=== PATIENT | male | born 1960 | race Caucasian/White ===

== ENCOUNTER 2017-02-05 08:24 | Inpatient (IN) | payer SELFPAY ==
[2017-02-05] VITALS (12 sets, daily range): BP systolic 122–133; BP diastolic 57–85; PULSE 92–118; RESP 14–20; TEMP 96–97.8; O2SAT 92–99
[~2017-02-05] VITALS: Ht 182.9 cm; Wt 96.4 kg
[2017-02-05] MEDS ORDERED: methylPREDNISolone SOD SUCC 125 MG/2 ML VIAL IVP ONE (08:30)
[2017-02-05] MEDS ORDERED: SODIUM CHLORIDE 0.9% FLUSH 10 ML FLUSH IVF PRN (08:30)
[2017-02-05] MEDS: RESP: ALBUTEROL 2.5 MG/IPRATROPIUM 0.5 MG NEB (SCH) INH ×5 (08:38→19:19)
--- NOTE | 2017-02-05 08:51 | RADRPT ---
EXAM DATE/TIME: 02/05/2017 08:49 [facility] COMPARISON: CHEST PA & LAT, March 03, 2016, 3:51. INDICATIONS : Short of breath MEDICAL HISTORY : Chronic obstructive pulmonary disease. TIA's SURGICAL HISTORY : None. ENCOUNTER: Initial ACUITY: 1 day PAIN SCORE: 0/10 LOCATION: Bilateral chest FINDINGS: A single view of the chest demonstrates the lungs to be symmetrically aerated without evidence of mas s, infiltrate or effusion. The cardiomediastinal contours are unremarkable. Osseous structures are intact. CONCLUSION: No acute disease. Jeremías Kaur MD on February 05, 2017 at 8:50 Board Certified Radiologist. This report was verified electronically.
[2017-02-05] MEDS ORDERED: ACET300T2 PO (08:53)
[2017-02-05] MEDS ORDERED: PRED20 PO (08:53)
[2017-02-05] MEDS ORDERED: VENTAER INH (08:53)
[2017-02-05] MEDS ORDERED: LEVO500T8 PO (08:53)
--- NOTE | 2017-02-05 08:59 | PD ---
HPI . Respiratory distress Chief Complaint: Respiratory Distress Time Seen by Provider: 08:30 Travel History International Travel<30 days: No Contact w/Intl Traveler<30days: No Traveled to known affect area: No History of Present Illness HPI This patient presents ambulatory with chief complaint of respiratory distress. The patient reports that he has had before his symptoms for the last several weeks. The symptoms have become acutely worse over the last 3-4 days. He states that he has a very persistent cough which is causing him some chest discomfort. He has developed some hemoptysis. He has developed vomiting. He reports that he was seen at an outside facility yesterday and was given prescriptions for Levaquin, prednisone and Tylenol No. 3. He states that he has been taking these medications along with his usual albuterol MDI and nebulizer without any relief of his symptoms. Symptoms are getting worse rather than better. His symptoms are now severe. He has had no known fever. PFSH Past Medical History Hx Anticoagulant Therapy: Yes (per pt ) Arthritis: Yes Asthma: Yes COPD: Yes Cerebrovascular Accident: Yes (x 3 or 4 per pt) Respiratory: Yes (COPD / ASTHMA) Seizures: Yes Influenza Vaccination: No Past Surgical History Other Surgery: Yes (metakl plate in nose and roof of mouth ) Social History Alcohol Use: Yes (weekly) Tobacco Use: No Substance Use: No Allergies-Medications (Allergen,Severity, Reaction): Coded Allergies: Penicillins (Verified Allergy, Intermediate, HIVES / RASH, 02/05/17) Reported Meds & Prescriptions Reported Meds & Active Scripts Active Reported Levofloxacin 500 Mg Tablet 500 Mg PO DAILY 7 Days Acetaminophen-Codeine 300-30 mg Tab 1 Tab PO Q4H PRN Prednisone 20 Mg Tab 20 Mg PO DIRECTED 40 MG twice a day x 3 days, then 20 MG daily x 3 days, then 10 MG daily x 3 days Ventolin Hfa 18 GM Inh (Albuterol Sulfate) 90 Mcg/Act Aer 2 Puff INH Q4-6H PRN Review of Systems Except as stated in HPI: all other systems reviewed are Neg General / Constitutional: No: Fever, Chills Cardiovascular: Positive: Chest Pain or Discomfort Respiratory: Positive: Cough, Shortness of Breath, Wheezing Gastrointestinal: Positive: Vomiting Neurologic: Positive: Weakness Physical Exam Narrative GENERAL: This patient is coughing continuously and seems to be in respiratory distress. He also seems to be in a fair amount of pain. SKIN: warm/dry. HEAD: Normocephalic. EYES: Pupils equal and round. No scleral icterus. No injection or drainage. ENT: No nasal bleeding or discharge. Mucous membranes pink and moist. NECK: Trachea midline. Full range of motion without pain.. CARDIOVASCULAR: Regular rate and rhythm. Sinus tachycardia. RESPIRATORY: He is tachypneic. He has diffuse inspiratory and expiratory wheezing. He coughs and then clutches his chest. GASTROINTESTINAL: Abdomen soft. Nontender. Bowel sounds present. Nondistended. MUSCULOSKELETAL: No obvious deformities. NEUROLOGICAL: Awake and alert. No obvious cranial nerve deficits. Motor grossly within normal limits. Normal speech. PSYCHIATRIC: Appropriate mood and affect; insight and judgment normal. Data Data Last Documented VS Vital Signs Date Time Temp Pulse Resp B/P (MAP) Pulse Ox O2 Delivery O2 Flow Rate FiO2 02/05/17 10:01 107 16 125/66 (85) 99 Nasal Cannula 2.00 02/05/17 08:45 97.8 Orders Orders Complete Blood Count With Diff (02/05/17 08:30) Comprehensive Metabolic Panel (02/05/17 08:30) B-Type Natriuretic Peptide (02/05/17 08:30) D-Dimer (02/05/17 08:30) Act Partial Throm Time (Ptt) (02/05/17 08:30) Prothrombin Time / Inr (Pt) (02/05/17 08:30) Ckmb (Isoenzyme) Profile (02/05/17 08:30) Troponin I (02/05/17 08:30) Arterial Blood Gas (Abg) (02/05/17 08:30) Iv Access Insert/Monitor (02/05/17 08:30) Ecg Monitoring (02/05/17 08:30) Oximetry (02/05/17 08:30) Oxygen Administration (02/05/17 08:30) Chest, Single Ap (02/05/17 08:30) Sodium Chloride 0.9% Flush (Ns Flush) (02/05/17 08:30) Methylprednisolone So Succ Inj (Solumedr (02/05/17 08:30) Albuterol-Ipratropium Neb (Duoneb Neb) (02/05/17 08:30) Sodium Chlor 0.9% 1000 Ml Inj (Ns 1000 M (02/05/17 09:15) Electrocardiogram (02/05/17 08:26) CKMB (02/05/17 08:30) CKMB% (02/05/17 08:30) Admit Order (Ed Use Only) (02/05/17 10:54) Labs Laboratory Tests Test 02/05/17 08:30 White Blood Count 18.7 TH/MM3 Red Blood Count 5.30 MIL/MM3 Hemoglobin 13.4 GM/DL Hematocrit 43.1 % Mean Corpuscular Volume 81.3 FL Mean Corpuscular Hemoglobin 25.3 PG Mean Corpuscular Hemoglobin Concent 31.1 % Red Cell Distribution Width 15.4 % Platelet Count 260 TH/MM3 Mean Platelet Volume 8.4 FL Neutrophils (%) (Auto) 87.3 % Lymphocytes (%) (Auto) 7.0 % Monocytes (%) (Auto) 5.5 % Eosinophils (%) (Auto) 0.1 % Basophils (%) (Auto) 0.1 % Neutrophils # (Auto) 16.4 TH/MM3 Lymphocytes # (Auto) 1.3 TH/MM3 Monocytes # (Auto) 1.0 TH/MM3 Eosinophils # (Auto) 0.0 TH/MM3 Basophils # (Auto) 0.0 TH/MM3 CBC Comment DIFF FINAL Differential Comment Prothrombin Time 10.2 SEC Prothromb Time International Ratio 0.9 RATIO Activated Partial Thromboplast Time 23.8 SEC D-Dimer Quantitative (PE/DVT) 0.34 MG/L FEU Blood Urea Nitrogen 18 MG/DL Creatinine 1.42 MG/DL Random Glucose 119 MG/DL Total Protein 7.8 GM/DL Albumin 3.5 GM/DL Calcium Level 9.3 MG/DL Alkaline Phosphatase 78 U/L Aspartate Amino Transf (AST/SGOT) 35 U/L Alanine Aminotransferase (ALT/SGPT) 38 U/L Total Bilirubin 0.2 MG/DL Sodium Level 138 MEQ/L Potassium Level 3.9 MEQ/L Chloride Level 104 MEQ/L Carbon Dioxide Level 24.0 MEQ/L Anion Gap 10 MEQ/L Estimat Glomerular Filtration Rate 52 ML/MIN Total Creatine Kinase 895 U/L Creatine Kinase MB 10.5 NG/ML Creatine Kinase MB % 1.2 % Troponin I LESS THAN 0.02 NG/ML B-Type Natriuretic Peptide 23 PG/ML MDM Medical Decision Making Medical Screen Exam Complete: Yes Emergency Medical Condition: Yes Interpretation(s) His EKG has sinus tachycardia. He was a lot of artifact. I don't see any acute ST segment elevation or depression. Differential Diagnosis Differential diagnosis of dyspnea includes but is not limited to congestive heart failure, pneumonia, wheezing, pneumothorax, pulmonary embolism Narrative Course This patient presents with worsening dyspnea associated with cough and now hemoptysis. He was emergently treated with stacked DuoNeb and Solu-Medrol, 125 mg IV. He is doing better. Last Impressions Chest X-Ray 02/05/17 0830 Signed Impressions: Service Date/Time: Sunday, February 05, 2017 08:49 - CONCLUSION: No acute disease. Jeremías Kaur MD The chest x-ray was independently viewed by me. CBC & BMP Diagram 02/05/17 08:30 Total Protein 7.8, Albumin 3.5, Calcium Level 9.3, Alkaline Phosphatase 78, Aspartate Amino Transf (AST/SGOT) 35, Alanine Aminotransferase (ALT/SGPT) 38, Total Bilirubin 0.2 This patient was started on steroids yesterday. Therefore, the WBC may be due to steroids. This patient is doing much better following treatment. He is agreeable to stay for observation as he was in respiratory distress on arrival. Critical Care Narrative Aggregate critical care time was minutes. Time to perform other separately billable procedures was not included in the critical care time. My time did not include minutes spent treating any other patients simultaneously or on activities that did not directly contribute to the patient's treatment. The services I provided to this patient were to treat and/or prevent clinically significant deterioration due to respiratory distress I provided critical care services requiring my management, as noted below: Chart data review, documentation time, medication orders and management, vital sign assessments/reviewing monitor data, ordering and reviewing lab tests, ordering and interpreting/reviewing x-rays and diagnostic studies, care of the patient and discussion of the patient with the admitting physicians Physician Communication Physician Communication Dr. Pearson states that this patient needs to be a full admit rather than OBS Diagnosis Primary Impression: Respiratory distress Additional Impression: Acute exacerbation of chronic obstructive pulmonary disease (COPD) Admitting Information Admitting Physician Requests: Admit Condition: Stable Mariza Mandel MD Feb 05, 2017 08:59
[2017-02-05] MEDS ORDERED: SODIUM CHLOR 0.9% 1000 ML INJ 1,000 ML IV ONE (09:15)
[2017-02-05 09:17] LABS: AUTOMATED NEUTROPHIL # 16.4 TH/MM3 (1.8-7.7); BASOPHIL % 0.1 % (0.0-2.0); EOSINOPHIL % 0.1 % (0.0-4.0); HEMATOCRIT 43.1 % (39.0-51.0); HEMO FLAGS DIFF FINAL; LYMPHOCYTE # 1.3 TH/MM3 (1.0-4.8); MEAN CELL VOLUME 81.3 FL (80.0-100.0); MEAN CORPUSCULAR HEMOGLOBIN 25.3 PG (27.0-34.0); MEAN CORPUSCULAR HGB CONC 31.1 % (32.0-36.0); MONO % 5.5 % (0.0-8.0); NEUT % 87.3 % (16.0-70.0); PLATELET COUNT 260 TH/MM3 (150-450); RED CELL DISTRIBUTION WIDTH 15.4 % (11.6-17.2); WHITE BLOOD COUNT 18.7 TH/MM3 (4.0-11.0)
[2017-02-05 09:27] LABS: APTT (PATIENT) 23.8 SEC (24.3-30.1); INTERNATIONAL NORMALIZED RATIO 0.9 RATIO; PROTHROMBIN TIME - PATIENT 10.2 SEC (9.8-11.6)
[2017-02-05 09:55] LABS: ALT (GPT) 38 U/L (12-78); ANION GAP 10 MEQ/L (5-15); AST (GOT) 35 U/L (15-37); BLOOD UREA NITROGEN 18 MG/DL (7-18); CHLORIDE 104 MEQ/L (98-107); GLOMERULAR FILTRATION RATE 52 ML/MIN (>89); POTASSIUM 3.9 MEQ/L (3.5-5.1); SODIUM (NA) 138 MEQ/L (136-145)
[2017-02-05 09:57] LABS: ALKALINE PHOSPHATASE 78 U/L (45-117); CREATINE KINASE 895 U/L (39-308); TOTAL BILIRUBIN ADULT 0.2 MG/DL (0.2-1.0)
[2017-02-05 10:10] LABS: CKMB 10.5 NG/ML (0.5-3.6)
[2017-02-05 11:18] LABS: BLOOD GAS BASE EXCESS -0.9 mmol/L (-2-2); BLOOD GAS CARBOXYHEMOGLOBIN 0.9 % (0-4); BLOOD GAS HCO3 23 mmol/L (22-26); BLOOD GAS METHEMOGLOBIN 0.9 % (0-2); BLOOD GAS O2 HGB SATURATION 95 % (90-100); BLOOD GAS OXYGEN CONTENT 16.2 Vol % (12.0-20.0); BLOOD GAS PCO2 40 mmHg (38-42); BLOOD GAS PO2 87 mmHG (61-120); BLOOD GAS TOTAL HGB 12.1 G/DL (12.0-16.0); CRITICAL VALUE NO; DRAW SITE RT RADIAL; LITER FLOW 2 L/M; NUMBER OF ARTERIAL PUNCTURES 1; OXYGEN DEVICE NASAL CANNULA; STAT YES; TEMP CORR TO 98.6; ULNAR PULSE PRESENT
[2017-02-05] MEDS ORDERED: SODIUM CHLORIDE 0.9% FLUSH 10 ML FLUSH IV FLUSH PRN (11:45)
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
--- NOTE | 2017-02-05 12:16 | RADRPT ---
EXAM DATE/TIME: 02/05/2017 12:01 [facility] COMPARISON: CHEST SINGLE AP, February 05, 2017, 8:49. INDICATIONS : Cough with chest pain, rib pain right side. RADIATION DOSE: 4.97 CTDIvol (mGy) MEDICAL HISTORY : Seizures. CVA x 3 SURGICAL HISTORY : None. ENCOUNTER: Initial ACUITY: 1 week PAIN SCALE: 10/10 LOCATION: Right chest TECHNIQUE: Volumetric scanning of the chest was performed. Using automated exposure control and adjustment of t he mA and/or kV according to patient size, radiation dose was kept as low as reasonably achievable to obtain optimal diagnostic quality images. DICOM format image data is available electronically for r eview and comparison. Follow-up recommendations for detected pulmonary nodules are based at a minimum on nodule size and pa tient risk factors according to Fleischner Society Guidelines. FINDINGS: Calcified granuloma right middle lobe measuring 64 mm. Lungs are otherwise clear. Calcified right hil ar 1.3 cm short axis lymph node. No pleural or pericardial effusions. A calcified granuloma in the sp adithya is present. The osseous structures are intact. CONCLUSION: No acute disease. Jeremías Kaur MD on February 05, 2017 at 12:13 Board Certified Radiologist. This report was verified electronically.
--- NOTE | 2017-02-05 12:36 | EKG ---
Date Performed: 02/05/2017 Time Performed: 08:26:31 PTAGE: 56 years EKG: SINUS TACHYCARDIA NONSPECIFIC T-WAVE ABNORMALITY ABNORMAL RHYTHM ECG INTERPRETATION BASED O N A DEFAULT AGE OF 41 YEARS NO PREVIOUS TRACING DOCTOR: Jeffrey Cortes Interpretating Date/Time 02/05/2017 12:35:10
[2017-02-05] MEDS: SODIUM CHLOR 0.9% 1000 ML INJ 1,000 ML IV SCH ×2 (12:44→23:23)
[2017-02-05] MEDS: LEVOFLOXACIN 750 MG PREMIX INJ 150 ML IV SCH (12:45)
[2017-02-05] MEDS: methylPREDNISolone SOD SUCC 125 MG/2 ML VIAL IVP SCH ×2 (14:47→21:00)
[2017-02-05] MEDS: SODIUM CHLORIDE 0.9% FLUSH 10 ML FLUSH IV FLUSH SCH (21:00)
[2017-02-05] MEDS: BUDESONIDE-FORMOTEROL 160/4.5 MCG INHALER INH SCH (23:22)
[2017-02-06] VITALS (9 sets, daily range): BP systolic 125–139; BP diastolic 67–78; PULSE 82–96; RESP 17–19; TEMP 95.3–97; O2SAT 94–98
[2017-02-06] MEDS: RESP: ALBUTEROL 2.5 MG/IPRATROPIUM 0.5 MG NEB (SCH) INH ×5 (01:13→21:42)
[2017-02-06] MEDS: RESP: ALBUTEROL 2.5 MG/3 ML NEB (PRN) INH (03:47)
[2017-02-06] MEDS: guaiFENesin/CODEINE SYRUP 200 MG/20 MG/10 ML CUP PO PRN (04:13)
[2017-02-06] MEDS: methylPREDNISolone SOD SUCC 125 MG/2 ML VIAL IVP SCH ×4 (04:14→21:45)
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
[2017-02-06] MEDS: SODIUM CHLORIDE 0.9% FLUSH 10 ML FLUSH IV FLUSH SCH ×2 (09:00→21:44)
[2017-02-06] MEDS: BUDESONIDE-FORMOTEROL 160/4.5 MCG INHALER INH SCH ×2 (09:12→21:44)
[2017-02-06] MEDS: SODIUM CHLOR 0.9% 1000 ML INJ 1,000 ML IV SCH ×2 (11:50→23:45)
[2017-02-06] MEDS: LEVOFLOXACIN 750 MG PREMIX INJ 150 ML IV SCH (12:52)
--- NOTE | 2017-02-06 13:54 | RADRPT ---
EXAM DATE/TIME: 02/06/2017 13:19 [place] COMPARISON: CHEST SINGLE AP, February 05, 2017, 8:49. INDICATIONS : Chest pain with dyspnea. DOSE: 8.5 mCi Tc99m MAA IV 1.5 mCi Tc99m DTPA aerosol MEDICAL HISTORY : Chronic obstructive pulmonary disease. SURGICAL HISTORY : None. ENCOUNTER: Initial ACUITY: 3 days PAIN SCALE: 2/10 LOCATION: Left chest TECHNIQUE: Following five minutes of tidal breathing of DTPA aerosol, planar images of the lungs were performed in eight projections. The patient was then injected with MAA, and eight-view perfusion scan was perf ormed. FINDINGS: There are patchy ventilation defects with normal perfusion. There is no perfusion mismatch. CONCLUSION: Low probability for pulmonary embolism. This is predominantly in ventilatory defect. Adis Askew MD FACR on February 06, 2017 at 13:51 Board Certified Radiologist. This report was verified electronically.
--- NOTE | 2017-02-06 15:33 | HHI.PR ---
Subjective Remarks Patient still short of breath although better than yesterday still coughing but much improved denies fevers/chills as per RN patient refused labs in am o2 sats improving Objective Vitals Vital Signs Date Time Temp Pulse Resp B/P (MAP) Pulse Ox O2 Delivery O2 Flow Rate FiO2 02/06/17 14:32 95.3 89 17 139/78 (98) 96 02/06/17 12:00 95.5 86 18 139/76 (97) 98 02/06/17 09:47 96 Nasal Cannula 3.00 02/06/17 08:00 96.5 82 19 125/74 (91) 94 02/06/17 03:50 96.4 95 18 130/75 (93) 94 02/06/17 01:15 94 Nasal Cannula 3.00 02/05/17 23:25 96.4 92 20 128/76 (93) 97 02/05/17 22:00 94 Nasal Cannula 2.00 02/05/17 20:25 96.8 101 19 128/85 (99) 96 02/05/17 16:40 96.0 97 18 132/71 (91) 96 02/05/17 16:11 98 Nasal Cannula 3.00 02/05/17 15:53 I/O 02/05/17 02/05/17 02/05/17 02/06/17 02/06/17 02/06/17 07:00 15:00 23:00 07:00 15:00 23:00 Intake Total 1000 ml 360 ml 1241 ml Balance 1000 ml 360 ml 1241 ml Intake Oral 360 ml 480 ml IV Total 1000 ml 761 ml # Voids 1 2 # Bowel Movements 0 0 Result Diagram: 02/05/1782902/05/1730 Imaging Last Impressions Lung Scan-VQ Nuclear Medicine 02/06/17 0000 Signed Impressions: Service Date/Time: Monday, February 06, 2017 13:19 - CONCLUSION: Low probability for pulmonary embolism. This is predominantly in ventilatory defect. Adis Askew MD FACR Chest X-Ray 02/05/17829 Signed Impressions: Service Date/Time: Sunday, February 05, 2017 08:49 - CONCLUSION: No acute disease. Jeremías Kaur MD Chest CT 02/05/17 0000 Signed Impressions: Service Date/Time: Sunday, February 05, 2017 12:01 - CONCLUSION: No acute disease. Jeremías Kaur MD Objective Remarks GENERAL: This is a well-nourished, well-developed patient, lying in bed on 2LNC , coughing with noticeable chest discomfort. SKIN: No rashes, ecchymoses or lesions. Cool and dry. Multiple tatoos noted. HEAD: Atraumatic. Normocephalic. EYES: Pupils equal round and reactive. Extraocular motions intact. No scleral icterus. No injection or drainage. ENT: Nose without bleeding. Airway patent. NECK: Trachea midline. No JVD. Supple. CARDIOVASCULAR: Sinus tachycardia. No murmurs, gallops, or rubs. Diffuse chest wall tenderness to palpation. RESPIRATORY: diffuse bilateral expiratory wheezing with improved air movement when compared to previous day. GASTROINTESTINAL: Abdomen soft, non-tender, nondistended. No guarding. MUSCULOSKELETAL: Extremities without clubbing, cyanosis, or edema. No joint tenderness, effusion, or edema noted. NEUROLOGICAL: Awake and alert. Cranial nerves II through XII intact. Motor and sensory grossly within normal limits. Five out of 5 muscle strength in all muscle groups. Normal speech. Medications and IVs Current Medications Medications (Trade) Dose Ordered Sig/Hayden Route Start Time Stop Time Status Last Admin (NS Flush) 2 ml BID IV FLUSH 02/05/17 21:00 (NS Flush) 2 ml UNSCH PRN IV FLUSH 02/05/17 11:45 (Duoneb Neb) 1 ampule Q4HR NEB INH 02/05/17 12:00 02/06/17 12:33 (Albuterol Neb) 2.5 mg Q2HR NEB PRN INH 02/05/17 11:45 (Symbicort 160-4.5 Inh) 2 puff Q12HR INH 02/05/17 21:00 02/06/17 09:12 (SoluMEDROL INJ) 60 mg Q6H IVP 02/05/17 15:00 02/06/17 14:32 Levofloxacin/ Dextrose 150 ml @ 100 mls/hr Q24H IV 02/05/17 13:00 02/06/17 12:52 Sodium Chloride 1,000 ml @ 84 mls/hr [id number] IV 02/05/17 12:00 02/05/17 23:23 (Robitussin Ac 200-20 Mg/10 ml Liq) 10 ml Q4H PRN PO 02/05/17 13:00 02/06/17 04:13 A/P Problem List: (1) Sepsis ICD Code: A41.9 - Sepsis, unspecified organism Plan: Present on admission patient with leukocytosis of 18.7, bandemia 87.3% and tachycardia. Continue IV fluids, IV antibiotics Blood cultures obtained and negative 1 Negative flu a and B antigen (2) Acute exacerbation of chronic obstructive pulmonary disease (COPD) ICD Code: J44.1 - Chronic obstructive pulmonary disease with (acute) exacerbation Status: Acute Plan: Patient admitted to the medical floor. Started on IV Levaquin, IV Solu-Medrol, Symbicort and Robitussin Ac for cough Patient also placed on DuoNeb's Continue Treatment at same dose of IV Solu-Medrol. Pulmonary consulted. (3) Respiratory distress ICD Code: R06.00 - Dyspnea, unspecified Status: Acute Plan: Due to COPD exacerbation. VQ scan ordered per pulmonology and will probably defer pulmonary embolism. There is a predominantly ventilatory defect. (4) PIPPA (acute kidney injury) ICD Code: N17.9 - Acute kidney failure, unspecified Plan: Likely prerenal azotemia. Continue IV fluids and monitor creatinine, strict I's and O's, avoid nephrotoxins. Patient refused a.m. labs. (5) Rhabdomyolysis ICD Code: M62.82 - Rhabdomyolysis Plan: Likely secondary to coughing, dehydration and possibly leading to acute kidney injury. Total CK at 895. Continue to monitor CK. A.m. labs not obtained due to patient refusal. Assessment and Plan DVT prophylaxis: SCDs, Caprini score of 1, early ambulation recommended. GI prophylaxis: We'll add PPI since patient is is on IV steroids. Discharge Planning Continue to monitor in the medical floor. Patient still with acute COPD exacerbation Problem Qualifiers (1) Sepsis: Qualified Codes: A41.9 - Sepsis, unspecified organism Cliff Tucker MD Feb 06, 2017 15:33
[2017-02-07] MEDS: RESP: ALBUTEROL 2.5 MG/IPRATROPIUM 0.5 MG NEB (SCH) INH ×6 (00:33→20:44)
[2017-02-07] MEDS: methylPREDNISolone SOD SUCC 125 MG/2 ML VIAL IVP SCH ×3 (03:00→16:53)
[2017-02-07 08:00] VITALS: BP 136/73; PULSE 85; RESP 18; TEMP 95.8; O2SAT 93
[2017-02-07 08:25] VITALS: O2SAT 94
[2017-02-07] MEDS: SODIUM CHLORIDE 0.9% FLUSH 10 ML FLUSH IV FLUSH SCH ×2 (09:00→20:57)
[2017-02-07] MEDS: BUDESONIDE-FORMOTEROL 160/4.5 MCG INHALER INH SCH ×2 (09:00→20:59)
[2017-02-07 09:42] LABS: AUTOMATED NEUTROPHIL # 14.2 TH/MM3 (1.8-7.7); BASOPHIL % 0.1 % (0.0-2.0); HEMATOCRIT 41.3 % (39.0-51.0); LYMPH % 6.5 % (9.0-44.0); MEAN CELL VOLUME 80.2 FL (80.0-100.0); MEAN CORPUSCULAR HEMOGLOBIN 26.5 PG (27.0-34.0); MONO % 5.1 % (0.0-8.0); NEUT % 88.3 % (16.0-70.0); PLATELET COUNT 260 TH/MM3 (150-450); RED BLOOD COUNT 5.14 MIL/MM3 (4.50-5.90); RED CELL DISTRIBUTION WIDTH 15.2 % (11.6-17.2); WHITE BLOOD COUNT 16.1 TH/MM3 (4.0-11.0)
[2017-02-07 09:45] LABS: HEMO FLAGS AUTO DIFF
[2017-02-07 10:08] LABS: ALKALINE PHOSPHATASE 63 U/L (45-117); ALT (GPT) 49 U/L (12-78); ANION GAP 7 MEQ/L (5-15); AST (GOT) 37 U/L (15-37); BLOOD UREA NITROGEN 16 MG/DL (7-18); CHLORIDE 106 MEQ/L (98-107); GLOMERULAR FILTRATION RATE 80 ML/MIN (>89); MAGNESIUM 2.4 MG/DL (1.5-2.5); POTASSIUM 3.9 MEQ/L (3.5-5.1); SODIUM (NA) 139 MEQ/L (136-145); TOTAL BILIRUBIN ADULT 0.2 MG/DL (0.2-1.0)
[2017-02-07 10:52] LABS: PLATELET ESTIMATE SMEAR NORMAL (NORMAL); PLATELET MORPHOLOGY NORMAL (NORMAL); SCAN/DIFF AUTO DIFF CONFIRMED
[2017-02-07] MEDS: SODIUM CHLOR 0.9% 1000 ML INJ 1,000 ML IV SCH (11:40)
[2017-02-07 12:00] VITALS: BP 135/78; PULSE 85; RESP 18; TEMP 97.1; O2SAT 96
[2017-02-07] MEDS: LEVOFLOXACIN 750 MG PREMIX INJ 150 ML IV SCH (14:29)
[2017-02-07 16:00] VITALS: BP 135/80; PULSE 94; RESP 18; TEMP 96.9; O2SAT 95
--- NOTE | 2017-02-07 16:26 | HHI.PR ---
Subjective Remarks Patient states that he had bad cough last night improved today but still present denies fevers or chills good 02 sat on 2 liters nasal canula Objective Vitals Vital Signs Date Time Temp Pulse Resp B/P (MAP) Pulse Ox O2 Delivery O2 Flow Rate FiO2 02/07/17 12:00 97.1 85 18 135/78 (97) 96 02/07/17 08:25 94 Nasal Cannula 2.00 02/07/17 08:00 95.8 85 18 136/73 (94) 93 02/06/17 23:45 97.0 90 19 136/71 (92) 94 02/06/17 21:43 96 Nasal Cannula 2.00 02/06/17 20:10 97.0 96 19 138/67 (90) 95 I/O 02/06/17 02/06/17 02/06/17 02/07/17 02/07/17 02/07/17 06:59 14:59 22:59 06:59 14:59 22:59 Intake Total 1241 ml 1680 ml 600 ml Balance 1241 ml 1680 ml 600 ml Intake Oral 480 ml 1680 ml 600 ml IV Total 761 ml # Voids 2 5 2 # Bowel Movements 0 2 0 Result Diagram: 02/07/17 0818 02/07/17 0818 Imaging Last Impressions Lung Scan-VQ Nuclear Medicine 02/06/17 0000 Signed Impressions: Service Date/Time: Monday, February 06, 2017 13:19 - CONCLUSION: Low probability for pulmonary embolism. This is predominantly in ventilatory defect. Adis Askew MD FACR Chest X-Ray 02/05/17 0830 Signed Impressions: Service Date/Time: Sunday, February 05, 2017 08:49 - CONCLUSION: No acute disease. Jeremías Kaur MD Chest CT 02/05/17 0000 Signed Impressions: Service Date/Time: Sunday, February 05, 2017 12:01 - CONCLUSION: No acute disease. Jeremías Kaur MD Objective Remarks GENERAL: This is a well-nourished, well-developed patient, lying in bed on 2LNC , coughing with noticeable chest discomfort. SKIN: No rashes, ecchymoses or lesions. Cool and dry. Multiple tatoos noted. HEAD: Atraumatic. Normocephalic. EYES: Pupils equal round and reactive. Extraocular motions intact. No scleral icterus. No injection or drainage. ENT: Nose without bleeding. Airway patent. NECK: Trachea midline. No JVD. Supple. CARDIOVASCULAR: Sinus tachycardia. No murmurs, gallops, or rubs. Diffuse chest wall tenderness to palpation. RESPIRATORY: diffuse bilateral expiratory wheezing with improved air movement when compared to previous day. GASTROINTESTINAL: Abdomen soft, non-tender, nondistended. No guarding. MUSCULOSKELETAL: Extremities without clubbing, cyanosis, or edema. No joint tenderness, effusion, or edema noted. NEUROLOGICAL: Awake and alert. Cranial nerves II through XII intact. Motor and sensory grossly within normal limits. Five out of 5 muscle strength in all muscle groups. Normal speech. Medications and IVs Current Medications Medications (Trade) Dose Ordered Sig/Hayden Route Start Time Stop Time Status Last Admin (NS Flush) 2 ml BID IV FLUSH 02/05/17 21:00 02/07/17 09:00 (NS Flush) 2 ml UNSCH PRN IV FLUSH 02/05/17 11:45 (Duoneb Neb) 1 ampule Q4HR NEB INH 02/05/17 12:00 02/07/17 15:21 (Albuterol Neb) 2.5 mg Q2HR NEB PRN INH 02/05/17 11:45 (Symbicort 160-4.5 Inh) 2 puff Q12HR INH 02/05/17 21:00 02/07/17 09:00 (SoluMEDROL INJ) 60 mg Q6H IVP 02/05/17 15:00 02/07/17 12:00 Levofloxacin/ Dextrose 150 ml @ 100 mls/hr Q24H IV 02/05/17 13:00 02/07/17 14:29 Sodium Chloride 1,000 ml @ 84 mls/hr [id number] IV 02/05/17 12:00 02/05/17 23:23 (Robitussin Ac 200-20 Mg/10 ml Liq) 10 ml Q4H PRN PO 02/05/17 13:00 02/06/17 04:13 Urinary Catheter: No Vascular Central Line Catheter: No A/P Problem List: (1) Sepsis ICD Code: A41.9 - Sepsis, unspecified organism Plan: Present on admission patient with leukocytosis of 18.7, bandemia 87.3% and tachycardia. Continue IV fluids, IV antibiotics Blood cultures obtained and negative 2 Negative flu a and B antigen (2) Acute exacerbation of chronic obstructive pulmonary disease (COPD) ICD Code: J44.1 - Chronic obstructive pulmonary disease with (acute) exacerbation Status: Acute Plan: Patient admitted to the medical floor. Continue IV Levaquin, IV Solu-Medrol, Symbicort and Robitussin Ac for cough Patient also placed on DuoNeb's Continue Treatment at same dose of IV Solu-Medrol. Pulmonary consulted. (3) Respiratory distress ICD Code: R06.00 - Dyspnea, unspecified Status: Resolved Plan: Due to COPD exacerbation. VQ scan ordered per pulmonology and will probably defer pulmonary embolism. There is a predominantly ventilatory defect. Resolved (4) PIPPA (acute kidney injury) ICD Code: N17.9 - Acute kidney failure, unspecified Status: Resolved Plan: Likely prerenal azotemia. Continue IV fluids and monitor creatinine, strict I's and O's, avoid nephrotoxins. 02/07 Resolved. Creatinine down to 0.97 from 1.42. (5) Rhabdomyolysis ICD Code: M62.82 - Rhabdomyolysis Plan: Likely secondary to coughing, dehydration and possibly leading to acute kidney injury. Total CK at 895. Continue to monitor CK. Continue Iv fluids and DC if ck normal Assessment and Plan DVT prophylaxis: SCDs, Caprini score of 1, early ambulation recommended. GI prophylaxis:Add PPI since patient is is on IV steroids. Discharge Planning Continue to monitor in the medical floor. Patient still with acute COPD exacerbation Problem Qualifiers (1) Sepsis: Qualified Codes: A41.9 - Sepsis, unspecified organism Cliff Tucker MD Feb 07, 2017 16:26
--- NOTE | 2017-02-07 16:55 | ECHRPT ---
Indication: sob CONCLUSIONS The left ventricular systolic function is normal with an estimated ejection fraction in the range of 55-60%. Doppler parameters are consistent with impaired left ventricular relaxtion (grade 1 diastolic dysfun ction). Trace mitral valve regurgitation. There is trace tricuspid valve regurgitation. Trivial pulmonary valve regurgitation. BP: / HR: Rhythm: MEASUREMENTS (Male / Female) Normal Values Technical Quality:Fair 2D ECHO LV Diastolic Diameter PLAX 4.0 cm 4.2 - 5.9 / 3.9 - 5.3 cm LV Systolic Diameter PLAX 3.0 cm IVS Diastolic Thickness 1.0 cm 0.6 - 1.0 / 0.6 - 0.9 cm LVPW Diastolic Thickness 1.0 cm 0.6 - 1.0 / 0.6 - 0.9 cm LV Relative Wall Thickness 0.5 RV Internal Dim ED PLAX 3.3 cm M-MODE Aortic Root Diameter MM 3.5 cm LA Systolic Diameter MM 4.2 cm LA Ao Ratio MM 1.2 AV Cusp Separation MM 1.9 cm DOPPLER LV E' Lateral Velocity 8.7 cm/s LV E' Septal Velocity 9.1 cm/s TR Peak Velocity 292.0 cm/s TR Peak Gradient 34.1 mmHg FINDINGS LEFT VENTRICLE The left ventricular systolic function is normal with an estimated ejection fraction in the range of 55-60%. Normal left ventricular size. Wall thickness is measured at the upper limits of normal. Doppler parameters are consistent with impaired left ventricular relaxtion (grade 1 diastolic dysfun ction). RIGHT VENTRICLE Normal right ventricular size and systolic function. There is a prominent moderator band observed in the right ventricle (benign finding). LEFT ATRIUM The left atrial size is mildly dilated. RIGHT ATRIUM The right atrial size is normal. ATRIAL SEPTUM Normal atrial septal thickness without atrial level shunting by limited color doppler interrogation. AORTA The aortic root and proximal ascending aorta are normal in size on limited imaging. MITRAL VALVE Structurally normal mitral valve. Trace mitral valve regurgitation. No mitral valve stenosis. AORTIC VALVE Trileaflet aortic valve. No aortic valve stenosis or regurgitation. TRICUSPID VALVE Structurally normal tricuspid valve. There is trace tricuspid valve regurgitation. PULMONARY VALVE The pulmonary valve is not well visualized. Trivial pulmonary valve regurgitation. VESSELS The inferior vena cava is normal in size. PERICARDIUM No pericardial effusion. Jaison Gonzalez DO (Electronically Signed) Final Date:07 February 2017 16:54
--- NOTE | 2017-02-07 17:46 | HHI.PR ---
Subjective Remarks He has some chest spasms. Cough is still there. Sputum is clear. Renal Profile is better Objective Vital Signs Date Time Temp Pulse Resp B/P (MAP) Pulse Ox O2 Delivery O2 Flow Rate FiO2 02/07/17 12:00 97.1 85 18 135/78 (97) 96 02/07/17 08:25 94 Nasal Cannula 2.00 02/07/17 08:00 95.8 85 18 136/73 (94) 93 02/06/17 23:45 97.0 90 19 136/71 (92) 94 02/06/17 21:43 96 Nasal Cannula 2.00 02/06/17 20:10 97.0 96 19 138/67 (90) 95 I/O 02/06/17 02/06/17 02/06/17 02/07/17 02/07/17 02/07/17 07:00 15:00 23:00 07:00 15:00 23:00 Intake Total 1241 ml 1200 ml 480 ml 600 ml Balance 1241 ml 1200 ml 480 ml 600 ml Intake Oral 480 ml 1200 ml 480 ml 600 ml IV Total 761 ml # Voids 2 3 2 2 # Bowel Movements 0 1 1 0 Result Diagram: 02/07/17 0818 02/07/17 0818 Objective Remarks GENERAL: This is an averagely built mid aged white male who is alert and pale. HEENT: Head normocephalic. Pupils are reactive. Tongue is moist. Throat is injected. Nasal mucosae clear NECK: Supple and without venous distension. Trachea midline. CHEST: Distant breath sounds. EXAMINATION OF THE CHEST: Increased AP diameter with diffuse wheezes throughout both lung poole. Prolonged expirations. HEART: The heart sounds are irregular. S1-S2. No murmur. No S3. The abdomen is soft, protuberant without masses. No organomegaly. EXTREMITIES: No lesions, no edema. Assessment and Plan Assessment and Plan ASSESSMENT 1. COPD with acute exacerbation. 2. Severe emphysema and chronic bronchitis. 3. History of hypertension. 4. Hyperlipidemia. Plan : 1. Cont Antibiotics. 2. O2 2 L. 3. Cont Symbicort 160/4.5 mcg , 2puffs bid. 4. Reduce IV to 40 CC. 5. PFT in am. 6. Taper solumedrol to 40 mg q6h Beena Ames MD Feb 07, 2017 17:46
[2017-02-07 17:47] LABS: CKMB 4.9 NG/ML (0.5-3.6)
[2017-02-07] MEDS: guaiFENesin/CODEINE SYRUP 200 MG/20 MG/10 ML CUP PO PRN (19:00)
[2017-02-07] MEDS: PANTOPRAZOLE SOD 40 MG DELAYED RELEASE TAB PO SCH (19:00)
[2017-02-07 20:15] VITALS: BP 139/78; PULSE 87; RESP 18; TEMP 96.5; O2SAT 94
[2017-02-07 20:44] VITALS: O2SAT 93
[2017-02-07] MEDS: methylPREDNISolone SOD SUCC 40 MG/1 ML VIAL IV PUSH SCH (20:55)
[2017-02-08] VITALS (7 sets, daily range): BP systolic 126–148; BP diastolic 64–97; PULSE 86–93; RESP 17–19; TEMP 95.9–97.1; O2SAT 93–97
[2017-02-08] MEDS: RESP: ALBUTEROL 2.5 MG/IPRATROPIUM 0.5 MG NEB (SCH) INH ×5 (01:01→20:55)
[2017-02-08] MEDS: methylPREDNISolone SOD SUCC 40 MG/1 ML VIAL IV PUSH SCH ×4 (03:01→23:53)
[2017-02-08 06:08] LABS: AUTOMATED NEUTROPHIL # 11.8 TH/MM3 (1.8-7.7); BASOPHIL % 0.2 % (0.0-2.0); HEMATOCRIT 40.1 % (39.0-51.0); LYMPH % 7.3 % (9.0-44.0); MEAN CELL VOLUME 80.3 FL (80.0-100.0); MEAN CORPUSCULAR HEMOGLOBIN 25.4 PG (27.0-34.0); MEAN CORPUSCULAR HGB CONC 31.7 % (32.0-36.0); MONO % 5.8 % (0.0-8.0); NEUT % 86.7 % (16.0-70.0); PLATELET COUNT 238 TH/MM3 (150-450); RED BLOOD COUNT 4.99 MIL/MM3 (4.50-5.90); RED CELL DISTRIBUTION WIDTH 15.2 % (11.6-17.2); WHITE BLOOD COUNT 13.6 TH/MM3 (4.0-11.0)
[2017-02-08] MEDS: RESP: ALBUTEROL 2.5 MG/3 ML NEB (PRN) INH (06:17)
[2017-02-08 06:25] LABS: HEMO FLAGS AUTO DIFF
[2017-02-08 07:06] LABS: CKMB 4.8 NG/ML (0.5-3.6)
[2017-02-08 08:41] LABS: SCAN/DIFF AUTO DIFF CONFIRMED
[2017-02-08] MEDS: PANTOPRAZOLE SOD 40 MG DELAYED RELEASE TAB PO SCH (08:45)
[2017-02-08] MEDS: BUDESONIDE-FORMOTEROL 160/4.5 MCG INHALER INH SCH ×2 (08:45→20:45)
[2017-02-08] MEDS: SODIUM CHLOR 0.9% 1000 ML INJ 1,000 ML IV SCH (08:49)
[2017-02-08] MEDS: SODIUM CHLORIDE 0.9% FLUSH 10 ML FLUSH IV FLUSH SCH ×2 (08:52→20:45)
[2017-02-08] MEDS: LEVOFLOXACIN 750 MG PREMIX INJ 150 ML IV SCH (13:06)
--- NOTE | 2017-02-08 17:34 | HHI.PR ---
Subjective Remarks sob better cough better denies fevers or chills states had difficulty performing PFT's Objective Vitals Vital Signs Date Time Temp Pulse Resp B/P (MAP) Pulse Ox O2 Delivery O2 Flow Rate FiO2 02/08/17 12:00 95.9 87 18 144/83 (103) 93 02/08/17 08:49 95 Nasal Cannula 2.00 02/08/17 08:00 96.5 86 18 145/97 (113) 97 02/08/17 08:00 97 Humidified 2.00 02/08/17 00:20 96.7 91 19 127/68 (87) 94 02/07/17 20:44 93 Nasal Cannula 2.00 02/07/17 20:15 96.5 87 18 139/78 (98) 94 02/07/17 19:05 Nasal Cannula 2.00 I/O 02/07/17 02/07/17 02/07/17 02/08/17 02/08/17 02/08/17 06:59 14:59 22:59 06:59 14:59 22:59 Intake Total 600 ml 830 ml 480 ml Balance 600 ml 830 ml 480 ml Intake Oral 600 ml 480 ml 480 ml IV Total 350 ml # Voids 2 2 2 # Bowel Movements 0 0 0 Result Diagram: 02/08/17 0540 02/07/17 0818 Imaging Last Impressions Lung Scan-V Nuclear Medicine 02/06/17 0000 Signed Impressions: Service Date/Time: Monday, February 06, 2017 13:19 - CONCLUSION: Low probability for pulmonary embolism. This is predominantly in ventilatory defect. Adis Askew MD FACR Chest X-Ray 02/05/17 0830 Signed Impressions: Service Date/Time: Sunday, February 05, 2017 08:49 - CONCLUSION: No acute disease. Jeremías Kaur MD Chest CT 02/05/17 0000 Signed Impressions: Service Date/Time: Sunday, February 05, 2017 12:01 - CONCLUSION: No acute disease. Jeremías Kaur MD Objective Remarks GENERAL: This is a well-nourished, well-developed patient, lying in bed on 2LNC , coughing with noticeable chest discomfort. SKIN: No rashes, ecchymoses or lesions. Cool and dry. Multiple tatoos noted. HEAD: Atraumatic. Normocephalic. EYES: Pupils equal round and reactive. Extraocular motions intact. No scleral icterus. No injection or drainage. ENT: Nose without bleeding. Airway patent. NECK: Trachea midline. No JVD. Supple. CARDIOVASCULAR: Sinus tachycardia. No murmurs, gallops, or rubs. Diffuse chest wall tenderness to palpation. RESPIRATORY: Decreased breath sounds BL but no wheezing or rhonchi auscultated. GASTROINTESTINAL: Abdomen soft, non-tender, nondistended. No guarding. MUSCULOSKELETAL: Extremities without clubbing, cyanosis, or edema. No joint tenderness, effusion, or edema noted. NEUROLOGICAL: Awake and alert. Cranial nerves II through XII intact. Motor and sensory grossly within normal limits. Five out of 5 muscle strength in all muscle groups. Normal speech. Medications and IVs Current Medications Medications (Trade) Dose Ordered Sig/Hayden Route Start Time Stop Time Status Last Admin (NS Flush) 2 ml BID IV FLUSH 02/05/17 21:00 02/07/17 09:00 (NS Flush) 2 ml UNSCH PRN IV FLUSH 02/05/17 11:45 (Duoneb Neb) 1 ampule Q4HR NEB INH 02/05/17 12:00 02/08/17 15:53 (Albuterol Neb) 2.5 mg Q2HR NEB PRN INH 02/05/17 11:45 02/08/17 06:17 (Symbicort 160-4.5 Inh) 2 puff Q12HR INH 02/05/17 21:00 02/08/17 08:45 Levofloxacin/ Dextrose 150 ml @ 100 mls/hr Q24H IV 02/05/17 13:00 02/08/17 13:06 Sodium Chloride 1,000 ml @ 42 mls/hr [id number] IV 02/05/17 12:00 02/08/17 08:49 (Robitussin Ac 200-20 Mg/10 ml Liq) 10 ml Q4H PRN PO 02/05/17 13:00 02/07/17 19:00 (Protonix) 40 mg DAILY PO 02/07/17 17:00 02/08/17 08:45 (SoluMEDROL INJ) 40 mg Q6H IV PUSH 02/07/17 21:00 02/08/17 16:51 A/P Problem List: (1) Sepsis ICD Code: A41.9 - Sepsis, unspecified organism Plan: Present on admission patient with leukocytosis of 18.7, bandemia 87.3% and tachycardia. Blood cultures obtained and negative 2 Negative flu a and B antigen 02/08 DC IV fluids, cotinnue IV antibiotics as per ID recommendations. (2) Acute exacerbation of chronic obstructive pulmonary disease (COPD) ICD Code: J44.1 - Chronic obstructive pulmonary disease with (acute) exacerbation Status: Acute Plan: Patient admitted to the medical floor. Continue IV Levaquin, IV Solu-Medrol, Symbicort and Robitussin Ac for cough Patient also placed on DuoNeb's Continue Treatment at same dose of IV Solu-Medrol. Pulmonary consulted. Continue supplemental o2 to keep o2 sat >92% 02/08 taper solumedrol dose to 40 mg Q 8 hrs (3) Respiratory distress ICD Code: R06.00 - Dyspnea, unspecified Status: Resolved Plan: Due to COPD exacerbation. VQ scan ordered per pulmonology and will probably defer pulmonary embolism. There is a predominantly ventilatory defect. Resolved (4) PIPPA (acute kidney injury) ICD Code: N17.9 - Acute kidney failure, unspecified Status: Resolved Plan: Likely prerenal azotemia. Continue IV fluids and monitor creatinine, strict I's and O's, avoid nephrotoxins. 02/07 Resolved. Creatinine down to 0.97 from 1.42. (5) Rhabdomyolysis ICD Code: M62.82 - Rhabdomyolysis Plan: Likely secondary to coughing, dehydration and possibly leading to acute kidney injury. Total CK at 895. Continue to monitor CK. Continue Iv fluids and DC if ck normal 02/08 ck trending down to 357. Dc Iv Fluids and encourage po intake. continue to monitor ck Assessment and Plan DVT prophylaxis: SCDs, Caprini score of 1, early ambulation recommended. GI prophylaxis:Add PPI since patient is is on IV steroids. Discharge Planning Continue to monitor in the medical floor. Patient still with acute COPD exacerbation Problem Qualifiers (1) Sepsis: Qualified Codes: A41.9 - Sepsis, unspecified organism Cliff Tucker MD Feb 08, 2017 17:34
--- NOTE | 2017-02-08 20:02 | HHI.PR ---
Subjective Remarks He has some wheezing. Cough is still there. Sputum is clear. Renal Profile is better On o2 2 L Objective Vital Signs Date Time Temp Pulse Resp B/P (MAP) Pulse Ox O2 Delivery O2 Flow Rate FiO2 02/08/17 16:00 97.1 86 18 126/64 (84) 97 02/08/17 12:00 95.9 87 18 144/83 (103) 93 02/08/17 08:49 95 Nasal Cannula 2.00 02/08/17 08:00 96.5 86 18 145/97 (113) 97 02/08/17 08:00 97 Humidified 2.00 02/08/17 00:20 96.7 91 19 127/68 (87) 94 02/07/17 20:44 93 Nasal Cannula 2.00 02/07/17 20:15 96.5 87 18 139/78 (98) 94 I/O 02/07/17 02/07/17 02/07/17 02/08/17 02/08/17 02/08/17 07:00 15:00 23:00 07:00 15:00 23:00 Intake Total 600 ml 350 ml 480 ml 480 ml 1110 ml Balance 600 ml 350 ml 480 ml 480 ml 1110 ml Intake Oral 600 ml 480 ml 480 ml 960 ml IV Total 350 ml 150 ml # Voids 2 2 2 3 # Bowel Movements 0 0 0 1 Result Diagram: 02/08/17 0540 02/07/17 0818 Objective Remarks GENERAL: This is an averagely built mid aged white male who is alert and pale. HEENT: Head normocephalic. Pupils are reactive. Tongue is moist. Throat is injected. Nasal mucosae clear NECK: Supple and without venous distension. Trachea midline. CHEST: Distant breath sounds. EXAMINATION OF THE CHEST: Increased AP diameter with diffuse wheezes throughout both lung poole. Prolonged expirations. HEART: The heart sounds are irregular. S1-S2. No murmur. No S3. The abdomen is soft, protuberant without masses. No organomegaly. EXTREMITIES: No lesions, no edema. Assessment and Plan Assessment and Plan ASSESSMENT 1. COPD with acute exacerbation. 2. Severe emphysema and chronic bronchitis. 3. History of hypertension. 4. Hyperlipidemia. Plan : 1. Cont Antibiotics. 2. O2 2 L. and wean to RA 3. Cont Symbicort 160/4.5 mcg , 2puffs bid. 4. D/C IV . 5. Labs in am 6. Cont solumedrol to 40 mg q6h 7. Add theodur 200 mg bid Beena Ames MD Feb 08, 2017 20:02
[2017-02-08] MEDS: guaiFENesin/CODEINE SYRUP 200 MG/20 MG/10 ML CUP PO PRN (23:51)
[2017-02-09] VITALS: BP 136/77; PULSE 92; RESP 16; TEMP 96.8; O2SAT 94
[2017-02-09] MEDS: RESP: ALBUTEROL 2.5 MG/IPRATROPIUM 0.5 MG NEB (SCH) INH ×4 (04:43→12:00)
[2017-02-09] MEDS: methylPREDNISolone SOD SUCC 40 MG/1 ML VIAL IV PUSH SCH (06:16)
[2017-02-09 08:00] VITALS: BP 141/84; PULSE 88; RESP 18; TEMP 96.2; O2SAT 94
[2017-02-09] MEDS: PANTOPRAZOLE SOD 40 MG DELAYED RELEASE TAB PO SCH (08:30)
[2017-02-09 08:34] VITALS: O2SAT 94
[2017-02-09] MEDS ORDERED: THEOPHYLLINE ER 24 HR 300 MG CAPCR PO SCH (09:00)
[2017-02-09] MEDS: SODIUM CHLORIDE 0.9% FLUSH 10 ML FLUSH IV FLUSH SCH (09:00)
[2017-02-09 12:01] VITALS: BP 133/80; PULSE 83; RESP 18; TEMP 97; O2SAT 95
--- NOTE | 2017-02-09 13:12 | HHI.PR ---
Subjective Remarks Better today. Cough is less Sputum is clear. Renal Profile is better. Off o2 Objective Vital Signs Date Time Temp Pulse Resp B/P (MAP) Pulse Ox O2 Delivery O2 Flow Rate FiO2 02/09/17 12:01 97.0 83 18 133/80 (97) 95 02/09/17 08:34 94 Nasal Cannula 2.00 02/09/17 08:00 96.2 88 18 141/84 (103) 94 02/09/17 00:00 96.8 92 16 136/77 (96) 94 02/08/17 20:55 95 Nasal Cannula 2.00 02/08/17 19:00 96.3 93 17 148/84 (105) 96 02/08/17 16:00 97.1 86 18 126/64 (84) 97 I/O 02/08/17 02/08/17 02/08/17 02/09/17 02/09/17 02/09/17 07:00 15:00 23:00 07:00 15:00 23:00 Intake Total 480 ml 1110 ml 1472 ml 960 ml Output Total 6002 ml Balance 480 ml 1110 ml 1472 ml -5042 ml Intake Oral 480 ml 960 ml 480 ml 960 ml IV Total 150 ml 992 ml Output Urine Total 6002 ml # Voids 2 3 3 # Bowel Movements 0 1 0 0 Result Diagram: 02/08/17 0540 02/07/17 0818 Objective Remarks GENERAL: This is an averagely built mid aged white male who is alert and pale. HEENT: Head normocephalic. Pupils are reactive. Tongue is moist. Throat is injected. Nasal mucosae clear NECK: Supple and without venous distension. Trachea midline. CHEST: Distant breath sounds. EXAMINATION OF THE CHEST: Increased AP diameter with occ wheezes over both lung poole. Prolonged expirations. HEART: The heart sounds are irregular. S1-S2. No murmur. No S3. The abdomen is soft, protuberant without masses. No organomegaly. EXTREMITIES: No lesions, no edema. Assessment and Plan Assessment and Plan ASSESSMENT 1. COPD with acute exacerbation. 2. Severe emphysema and chronic bronchitis. 3. History of hypertension. 4. Hyperlipidemia. Plan : 1. Cont Antibiotics. and switch to Po 2. O2 2 L. and wean to RA 3. Cont Symbicort 160/4.5 mcg , 2puffs bid. 4. D/C IV . 5. Labs in am 6. D/C solumedrol and add Prednisone 20 mg BID 7. ACont theodur 200 mg bid Beena Ames MD Feb 09, 2017 13:12
[2017-02-09] MEDS: BUDESONIDE-FORMOTEROL 160/4.5 MCG INHALER INH SCH (13:17)
[2017-02-09] MEDS ORDERED: ALBU0.08 INH (15:05)
[2017-02-09] MEDS ORDERED: THEO1CAP3 PO (15:05)
[2017-02-09] MEDS ORDERED: VENTAER INH (15:05)
[2017-02-09] MEDS ORDERED: SYMB160A INH (15:05)
[2017-02-09] MEDS ORDERED: PRED20 PO (15:05)
--- NOTE | 2017-02-09 15:05 | HHI.DCPOC ---
Discharge Care Plan Diagnosis: (1) PIPPA (acute kidney injury) (2) Respiratory distress (3) Sepsis (4) Rhabdomyolysis (5) COPD with exacerbation Goals to Promote Your Health * To prevent worsening of your condition and complications * To maintain your health at the optimal level Directions to Meet Your Goals Take your medications as prescribed Follow your dietary instruction Follow activity as directed Keep your appointments as scheduled Take your immunizations and boosters as scheduled If your symptoms worsen call your PCP, if no PCP go to Urgent Care Center or Emergency Room Smoking is Dangerous to Your Health. Avoid second hand smoke Call the 24-hour hour crisis hotline for domestic abuse at Cliff Tucker MD Feb 09, 2017 15:05
--- NOTE | 2017-02-09 15:12 | HHI.DS ---
Discharge Summary Admission Date Feb 05, 2017 at 10:55 Discharge Date: Feb 09, 2017 Admitting Diagnosis resp distress, COPD (1) Sepsis ICD Code: A41.9 - Sepsis, unspecified organism Diagnosis: Principal (2) Acute exacerbation of chronic obstructive pulmonary disease (COPD) ICD Code: J44.1 - Chronic obstructive pulmonary disease with (acute) exacerbation Diagnosis: Principal Status: Acute (3) Respiratory distress ICD Code: R06.00 - Dyspnea, unspecified Diagnosis: Principal Status: Resolved (4) PIPPA (acute kidney injury) ICD Code: N17.9 - Acute kidney failure, unspecified Diagnosis: Principal Status: Resolved (5) Rhabdomyolysis ICD Code: M62.82 - Rhabdomyolysis Diagnosis: Principal Procedures none Brief History - From Admission Mr. Flannery is a 56-year-old male patient with a known medical history of severe COPD, asthma and history of tobacco use who presented to the ED with complaints of worsening cough x 2 weeks. Patient states that he quit smoking over 9 years ago, admitting to a smoking 5-6 packs of cigarettes for the past 30 years. He states that the past two weeks he has developed a productive cough with a mix of hemoptysis and black tinged sputum. Patient states he has been coughing so much "his ribs feel broken and "taking deep breaths makes him feel like he is choking" which eventually led to his presentation to the ED. He also admits to associated nausea and vomiting for the last several days after eating. Denies any diarrhea. Denies any associated fever or chills. Patient is currently on 2LNC with a poor inspiratory effort due to chest discomfort and coughing. The patient also complains of diffuse bilateral chest pain localized in both anterior thoracic region at the level of the ribs worst when coughing and palpation of the area. The pain is relieved after the patient stopped coughing. CBC/BMP: 02/08/17 0540 02/07/17 0818 Significant Findings Laboratory Tests Test 02/07/17 08:18 02/08/17 05:40 White Blood Count 16.1 TH/MM3 (4.0-11.0) 13.6 TH/MM3 (4.0-11.0) Mean Corpuscular Hemoglobin 26.5 PG (27.0-34.0) 25.4 PG (27.0-34.0) Neutrophils (%) (Auto) 88.3 % (16.0-70.0) 86.7 % (16.0-70.0) Lymphocytes (%) (Auto) 6.5 % (9.0-44.0) 7.3 % (9.0-44.0) Neutrophils # (Auto) 14.2 TH/MM3 (1.8-7.7) 11.8 TH/MM3 (1.8-7.7) Random Glucose 121 MG/DL (74-106) Albumin 2.9 GM/DL (3.4-5.0) Calcium Level 7.8 MG/DL (8.5-10.1) Estimat Glomerular Filtration Rate 80 ML/MIN (>89) Total Creatine Kinase 547 U/L (39-308) 357 U/L (39-308) Creatine Kinase MB 4.9 NG/ML (0.5-3.6) 4.8 NG/ML (0.5-3.6) Hemoglobin 12.7 GM/DL (13.0-17.0) Mean Corpuscular Hemoglobin Concent 31.7 % (32.0-36.0) Imaging Last Impressions Lung Scan- Nuclear Medicine 02/06/17 0000 Signed Impressions: Service Date/Time: Monday, February 06, 2017 13:19 - CONCLUSION: Low probability for pulmonary embolism. This is predominantly in ventilatory defect. Adis Askew MD FACR Chest X-Ray 02/05/17 0830 Signed Impressions: Service Date/Time: Sunday, February 05, 2017 08:49 - CONCLUSION: No acute disease. Jeremías Kaur MD Chest CT 02/05/17 0000 Signed Impressions: Service Date/Time: Sunday, February 05, 2017 12:01 - CONCLUSION: No acute disease. Jeremías Kaur MD PE at Discharge GENERAL: This is a well-nourished, well-developed patient, lying in bed on 2LNC , coughing with noticeable chest discomfort. SKIN: No rashes, ecchymoses or lesions. Cool and dry. Multiple tatoos noted. HEAD: Atraumatic. Normocephalic. EYES: Pupils equal round and reactive. Extraocular motions intact. No scleral icterus. No injection or drainage. ENT: Nose without bleeding. Airway patent. NECK: Trachea midline. No JVD. Supple. CARDIOVASCULAR: Sinus tachycardia. No murmurs, gallops, or rubs. Diffuse chest wall tenderness to palpation. RESPIRATORY: Decreased breath sounds BL but no wheezing or rhonchi auscultated. GASTROINTESTINAL: Abdomen soft, non-tender, nondistended. No guarding. MUSCULOSKELETAL: Extremities without clubbing, cyanosis, or edema. No joint tenderness, effusion, or edema noted. NEUROLOGICAL: Awake and alert. Cranial nerves II through XII intact. Motor and sensory grossly within normal limits. Five out of 5 muscle strength in all muscle groups. Normal speech. Pt update on day of discharge Shortness of breath resolved as well as cough. Patient denies fevers or chills. Hospital Course The patient presented with sepsis which was present on admission with leukocytosis, bandemia and tachycardia. Blood cultures obtained and negative. Patient showed also negative flu a and B test. The patient was treated with IV fluids supportively and IV antibiotics. ID was consulted to help with management of antibiotics. The patient also was found to have acute exacerbation of COPD was treated with IV Solu-Medrol, IV Levaquin, was started on Symbicort inhalers and Robitussin-AC for cough as well as DuoNeb treatments. Patient also received supplemental oxygen to keep oxygen saturation more than 92%. Pulmonary was consulted. VQ scan ordered as per pulmonology to rule out pulmonary embolism. VQ scan showed low probability for pulmonary embolism. Patient also was found to have acute kidney injury which was thought to be due to prerenal azotemia. Treated with IV fluids, creatinine and B1 were monitored , as well as a strict I's and O's. Creatinine trended down with IV fluid administration and eventually resolved. Patient also was found to be in rhabdomyolysis which was likely secondary to severe intractable coughing and dehydration which also possibly lead to acute kidney injury. Total CK was 895 and this was treated with IV fluids initially trending down to near normal. Patient's DVT prophylaxis was provided with SCDs as the patient had a Gi score of 1 and early and ablation was recommended. GI prophylaxis was provided with a PPI as the patient was on IV steroids. Pt Condition on Discharge: Stable Discharge Disposition: Discharge Home Discharge Time: <= 30 minutes Discharge Instructions DIET: Follow Instructions for: As Tolerated, No Restrictions Activities you can perform: Regular-No Restrictions Activities to Avoid: Strenuous Activity Follow up Referrals: PCP Follow-up - 1 Week Pulmonology - 2 Weeks New Medications: Albuterol Neb (Albuterol Neb) 2.5 Mg/3 Ml Neb 2.5 MG INH Q2HR NEB PRN for SHORTNESS OF BREATH, #1 BOX Budesonide-Formoterol Inh (Symbicort Inh) 160-4.5 Mcg/Act Aero 2 PUFF INH Q12HR for Shortness of Breath, #1 INHALER 2 Refills Theophylline ER 24 HR (Allan-24) 300 Mg Cap 300 MG PO DAILY for Shortness of Breath, #30 CAP Continued Medications: Albuterol 18 GM Inh (Ventolin Hfa 18 GM Inh) 90 Mcg/Act Aer 2 PUFF INH Q4-6H PRN for SHORTNESS OF BREATH, #1 INHALER 0 Refills (This prescription has been renewed) Levofloxacin (Levofloxacin) 500 Mg Tablet 500 MG PO DAILY for Infection for 7 Days, TAB 0 Refills Prednisone (Prednisone) 20 Mg Tab 20 MG PO DIRECTED for Inflammation, #11 TAB 0 Refills (This prescription has been renewed) 40 MG twice a day x 3 days, then 20 MG daily x 3 days, then 10 MG daily x 3 days Discontinued Medications: Acetaminophen-Codeine (Acetaminophen-Codeine) 300-30 mg Tab 1 TAB PO Q4H PRN for PAIN SCALE 6 TO 10, TAB 0 Refills Cliff Tucker MD Feb 09, 2017 15:12
[2017-02-09] MEDS ORDERED: predniSONE 20 MG TAB PO SCH (21:00)
[2017-02-10] MEDS ORDERED: LEVOFLOXACIN 750 MG TAB PO SCH (11:00)
== END 2017-02-09 19:04 | disposition home or self-care (01) | DRG 872 ==
LOC: NEPC 08:24 → NEDA 10:55 → N06A 16:02
PROVIDERS: ADMIT Hospitalist; ATTEND Hospitalist
DX: A41.9 Sepsis, unspecified organism (principal); N17.9 Acute kidney failure, unspecified; M62.82 Rhabdomyolysis; J44.1 Chronic obstructive pulmonary disease with (acute) exacerbation; Z87.891 Personal history of nicotine dependence; E86.0 Dehydration; E78.5 Hyperlipidemia, unspecified; I10 Essential (primary) hypertension
CPT/HCPCS: 36600; 71010; 71250; 76937; 78582; 80053; 82550; 82552; 82805; 83735; 83880; 84100; 84484; 85025; 85379; 85610; 85730; 87040; 87070; 87205; 87804; 93005; 93306; 94640; 94664; 96361; 96374; A9540; A9567; J1956; J2920; J2930; J7030; J7613

== ENCOUNTER 2017-05-26 17:30 | Emergency (ER) | payer SELFPAY ==
[~2017-05-26] VITALS: Ht 180.3 cm; Wt 82.0 kg
[~2017-05-26 17:30] MED LIST: ALBU0.08 INH; LEVO500T8 PO; PRED20 PO; SYMB160A INH; THEO1CAP3 PO; VENTAER INH
[2017-05-26 17:33] VITALS: BP 144/86; PULSE 78; RESP 16; TEMP 97.9; O2SAT 98
== END 2017-05-26 18:20 | disposition left against medical advice (07) ==
LOC: NED 17:30
DX: H57.12 Ocular pain, left eye (principal)
CPT/HCPCS: 99281